=== PATIENT | female | born 2005 | race Caucasian/White ===

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

== ENCOUNTER 2025-05-29 20:25 | Emergency (ER) | payer BC, SELFPAY ==
[2025-05-29 20:25] VITALS: BP 152/100; PULSE 105; RESP 16; TEMP 36.8; O2SAT 97; BMI 32.9
--- NOTE | 2025-05-29 20:33 | EDS_ITS ---
HPI History of Present Illness Chief Complaint: General Illness Informant: patient Onset/Context/Timing Onset: Hours Context: Sudden Onset Timing: Continuous Quality: Lightheaded Location: Generalized Worsened by: Standing, moving Relieved by: Nothing Narrative Narrative: Patient presents with lightheadedness and dizziness that began a few hours ago. Patient states it began rather suddenly. Patient states she feels lightheaded, like she might pass out. Patient denies any chest pain. Patient admits to some slight shortness of breath. Patient states the lightheadedness is worse with standing and moving. Patient states nothing makes it better. Patient admits to a mild headache. Patient denies any nausea or vomiting. Patient denies any fevers or chills. [facility] Medical History Suicidal ideations Depression Anxiety PCOS (polycystic ovarian syndrome) Home Medications ?Medication ?Instructions ?Recorded ?Last Taken ?Type duloxetine 30 mg capsule,delayed 90 mg PO DAILY Unknown History release (Cymbalta) lamotrigine 200 mg tablet 175 mg PO QHS 04/10/24 Unkno wn History (Lamictal) lurasidone 20 mg tablet 40 mg PO QPM 04/10/24 Unknow n History metformin 1,000 mg tablet 500 mg PO BID 04/10/24 Unkno wn History testosterone 12.5 mg/1.25 gram per transdermal DAILY 1 07/30/24 Unknown History pump actuation (1%) transdermal gel Allergy/AdvReac Type Severity Reaction Status Date / Time No Known Allergies Allergy Verified 05/29/25 20:29 Surgical History no surgical history no surgical history Social History housing: other Smoking Status: Never smoker ROS ROS ED Constitutional Constitutional ED: Denies chills or fever(s) Eyes Eyes: Denies blurry vision or change in vision ENT ENT ED: Denies rhinorrhea or sore throat Cardiovascular Cardiovascular: Denies chest pain or palpitations Respiratory/Chest Respiratory/Chest: Reports dyspnea; Denies cough Gastrointestinal Gastrointestinal: Denies nausea or vomiting Genitourinary Genitourinary ED: Denies dysuria or hematuria Musculoskeletal Musculoskeletal: Denies back pain or neck pain Integumentary Denies abscess or rash Neurologic Neurologic: Reports headache(s); Denies weakness Allergic/Immunologic Allergic/Immunologic ED: Denies mouth swelling or urticaria EXAM Physical Exam Const Vital Signs: 05/29/25 20:25 05/29/25 21:00 05/29/25 21:08 Temperature 98.3 F Temperature Source Temporal Pulse Rate 105 H Pulse Rate [Lying] 105 H Pulse Rate [Sitting (for 1 minute prior to obtaining)] 114 H Pulse Rate [Standing (for 1 minute prior to obtaining)] 113 H Respiratory Rate 16 Respiratory Effort Normal Non-Labored Respiratory Pattern Normal Blood Pressure 152/100 H Blood Pressure [Lying] 131/86 H Blood Pressure [Sitting (for 1 minute prior to obtaining)] 132/94 H Blood Pressure [Standing (for 1 minute prior to obtaining)] 141/100 H Blood Pressure Mean 117 Blood Pressure Mean [Lying] 101 Blood Pressure Mean [Sitting (for 1 minute prior to obtaining)] 106 Blood Pressure Mean [Standing (for 1 minute prior to obtaining)] 113 Pulse Ox 97 Oxygen Delivery Method Room Air Positive well nourished and well developed General Appearance ED: well developed and NAD HEENT Reports moist mucous membranes Neck supple and no JVD Resp normal respiratory effort and clear to auscultation bilaterally Cardio regular rate and regular rhythm GI non-tender and non-distended Palpation: soft Extremity normal to inspection General Extremety ED: Negative for edema or tenderness General Extremity: Negative for edema Neuro oriented x3, CN's II-XII intact bilaterally and no sensory deficits noted Sensorium / Orientation: alert Motor Exam: strength 5/5 throughout Psych mental status grossly normal MDM MDM MDM Narrative Medical decision making narrative: Differential diagnosis includes electrolyte abnormality, dehydration, , hypovolemia, and anxiety. Orthostatic vital signs will be obtained to assess for hypovolemia and dehydration. CBC will be obtained to assess for leukocytosis and anemia. Basic metabolic profile will be obtained to assess for electrolyte abnormality and renal function. Serum hCG will be obtained to assess for . Lab Data Attestation: I reviewed the patient's lab results. Lab results narrative: CBC was reviewed. There is a mild leukocytosis of 11.5. The remainder is within normal limits. Basic metabolic profile was reviewed. Creatinine was slightly elevated at 1.21. Glucose was slightly elevated at 120. The remainder is within normal limits. Serum hCG was reviewed and was negative. Labs: Laboratory Results - last 24 hr 05/29/25 20:54 WBC 11.5 H RBC 4.72 Hgb 14.4 Hct 43.1 MCV 91.3 MCH 30.5 MCHC 33.4 RDW Std Deviation 40.0 RDW Coeff of Katie 11.9 Plt Count 434 MPV 10.0 Immature Gran % (Auto) 0.300 Neut % (Auto) 60.4 Lymph % (Auto) 29.4 [place] % (Auto) 7.5 Eos % (Auto) 2.1 Baso % (Auto) 0.3 Absolute Neuts (auto) 6.9 Absolute Lymphs (auto) 3.38 Nucleated RBC % 0 Sodium 142 Potassium 4.0 Chloride 103 Carbon Dioxide 25.7 Anion Gap 13 BUN 12 Creatinine 1.21 H Estim Creat Clear Calc 79.21 Est GFR (MDRD) Non-Af 66 BUN/Creatinine Ratio 10.2 Glucose 120 H Calcium 9.9 Serum , Qual NEGATIVE Treatment and Re-Evaluation :: Patient was given IV fluids. Orthostatic vital signs were obtained and were within normal limits. Patient was advised of her findings. Patient was instructed to drink plenty of fluids. Patient was instructed to follow-up with her primary care physician in 5 to 7 days. Patient understood and was agreeable with the plan. All questions were answered. Discharge Plan Triage Chief Complaint: General Illness ED Provider: Natan Harris Dx/Rx/DC Orders Clinical Impression: Lightheadedness, Mild dehydration Instructions: ED Dizziness, Uncertain Cause Prescriptions: No Action duloxetine [Cymbalta] 30 mg capsule,delayed release(DR/EC) 90 mg PO DAILY metformin 1,000 mg tablet 500 mg PO BID lurasidone 20 mg tablet 40 mg PO QPM Rx Instructions: must administer with food (at least 350 calories) lamotrigine [Lamictal] 200 mg tablet 175 mg PO QHS testosterone 12.5 mg/ 1.25 gram (1 %) gel in metered-dose pump transdermal DAILY Primary Care Provider: Care Physician,No Primary Referrals: Britton Dillon MD [Med Staff - Active Staff, Family Practice] - 5-7 Days Care Physician,No Primary [Primary Care Provider, Medical] Print Language: Hebrew Disposition Disposition: Home, Self Care
[2025-05-29] MEDS: 0.9% Normal Saline (1000mL) 1,000 ML 1000 ML IV (20:54)
[2025-05-29 21:08] VITALS: BP 131/86; BP 132/94; BP 141/100; PULSE 105; PULSE 113; PULSE 114
[2025-05-29 21:23] LABS: Hematocrit 43.1 % (37-47); Hemoglobin 14.4 g/dL (12.0-15.0); Immature Granulocytes Count 0.030 X10^3/uL (0.0-0.0); Mean Corp Hgb Conc 33.4 g/dL (32-36); Mean Corpuscular Volume 91.3 fL (81-99); Mean Platelet Vol. 10.0 fl (6.2-12.0); NRBC Flagged by Analyzer 0 % (0-5); Platelet Count 434 K/mm3 (150-450); RBC Distribution Width CV 11.9 % (11.6-14.6); RBC Distribution Width SD 40.0 fl (35.1-43.9); Red Blood Count 4.72 M/mm3 (4.2-5.4); White Blood Count 11.5 K/mm3 (4.4-11.0)
[2025-05-29 21:30] LABS: Internal QC Validated? YES +Cl - CLEAR BKGD; Pregnancy, Serum, hCG Quali. NEGATIVE Negative
--- OUTSIDE RECORDS SUMMARY | 2025-05-29 21:33 | XMS RPT_ITS | CCD ---
Author Organization [facility] Care Team Providers Care Denture Processor Name Role Phone Byod Jolley Attending [facility] Physician, No Primary Primary Care Unava ilable Problems Problem Classification Problem Date Documented Da te Episodic/Chronic Suicide and intentional self-inflicted injury (1 source) Suicidal ideations; Translations: [Suicidal ideations] Onset: 05-02-2024 Episodic Results Test Name Value Interpretation Reference Range Facil ity Urine Cultureon 04-12-2024 URC Below infection level. Mixed Gram Pos Gram Neg Org Singer Count 1000-10,000 MIXC Mixed contaminants. Submit a new specimen if indicated. Normal [facility] Comment on above: Performed By: #### M 100.2200 #### [facility] [address] [place], [place], [id number] Alcohol, Blood (Medical)-Ser umon 04-10-2024 SERUM ETOH 5.0 mg/dL Normal [facility] Comment on above: Result Comment: The serum:whole blood ethanol ratio is approximately 1.14 and varies slightly with hematocrit. Medical Alcohol reference interval and critical value in non-tolerant individuals; 50 - 100 Impairment 100 Intoxication 100 - 250 Severe Poisoning 250 - 400 Deep/possible fatal coma Performed By: #### L 100.0100, L505.5000, L500.2500, L700.6800, L501.9100 #### [facility] [address] [place], [place], [id number] Basic Metabolic Profile (BMP )on 04-10-2024 BUN/CRE 9.7 RATIO Low 10-20 [facility] Comment on above: Performed By: #### L 100.0100, L505.5000, L500.2500, L700.6800, L501.9100 #### [facility] [address] [place], [address] CA,Total 9.9 mg/dL Normal 8.5-10.1 [facility] Comment on above: Performed By: #### L 100.0100, L505.5000, L500.2500, L700.6800, L501.9100 #### [facility] [address] [place], [address] Chloride [Moles/Vol] 107 mmol/L Normal 98-107 [facility] Comment on above: Performed By: #### L 100.0100, L505.5000, L500.2500, L700.6800, L501.9100 #### [facility] [address] [place], [address] CO2 [Moles/Vol] 27.0 mmol/L Normal 21.0-32.0 [facility] Comment on above: Performed By: #### L 100.0100, L505.5000, L500.2500, L700.6800, L501.9100 #### [facility] [address] [place], [address] Creatinine [Mass/Vol] 0.82 mg/dL Normal 0.55-1.02 [facility] Comment on above: Result Comment: The validity of the calculated GFR GFRAA in patients over 70 years has not been determined. Clinical correlation is essential. Performed By: #### L 100.0100, L505.5000, L500.2500, L700.6800, L501.9100 #### [facility] [address] [place], [address] ECRCL 116.75 ml/min Normal [facility] Comment on above: Performed By: #### L 100.0100, L505.5000, L500.2500, L700.6800, L501.9100 #### [facility] [address] [place], [address] EST GFR - AA 115 mL/min Normal >60 [facility] Comment on above: Result Comment: Afri can Israeli GFR Calc Performed By: #### L 100.0100, L505.5000, L500.2500, L700.6800, L501.9100 #### [facility] [address] [place], [address] GAP 6 Normal 5-15 [facility] Comment on above: Performed By: #### L 100.0100, L505.5000, L500.2500, L700.6800, L501.9100 #### [facility] [address] [place], [address] GFR/1.73 sq M.predicted among non-blacks MDRD (S/P/Bld) [Vol rate/Area] 95 mL/min/{1.73_m2} Normal >60 [facility] Comment on above: Result Comment: Non- GFR Calc Performed By: #### L 100.0100, L505.5000, L500.2500, L700.6800, L501.9100 #### [facility] [address] [place], [address] Glucose [Mass/Vol] 90 mg/dL Normal 74-106 [facility] Comment on above: Performed By: #### L 100.0100, L505.5000, L500.2500, L700.6800, L501.9100 #### [facility] [address] [place], [address] Potassium [Moles/Vol] 3.4 mmol/L Low 3.5-5.1 [facility] Comment on above: Performed By: #### L 100.0100, L505.5000, L500.2500, L700.6800, L501.9100 #### [facility] [address] [place], [address] Sodium [Moles/Vol] 139 mmol/L Normal 136-145 [facility] Comment on above: Performed By: #### L 100.0100, L505.5000, L500.2500, L700.6800, L501.9100 #### [facility] [address] [place], [address] Urea nitrogen [Mass/Vol] 8 mg/dL Normal 7-18 [facility] Comment on above: Performed By: #### L 100.0100, L505.5000, L500.2500, L700.6800, L501.9100 #### [facility] [address] [place], [address] CBC W/Diff, Automatedon 10-1 Absolute Lymph 3.75 X10 3/uL Normal 0.83-4.51 [facility] Comment on above: Performed By: #### L 100.0100, L505.5000, L500.2500, L700.6800, L501.9100 #### [facility] [address] [place], [address] Absolute Neut 9.5 X10 3/uL High 2.0-7.7 [facility] Comment on above: Performed By: #### L 100.0100, L505.5000, L500.2500, L700.6800, L501.9100 #### [facility] [address] [place], [address] Basophils/100 WBC (Bld) 0.7 % Normal 0-1 [facility] Comment on above: Performed By: #### L 100.0100, L505.5000, L500.2500, L700.6800, L501.9100 #### [facility] [address] [place], [address] Eosinophils/100 WBC (Bld) 2.5 % Normal 0-5 [facility] Comment on above: Performed By: #### L 100.0100, L505.5000, L500.2500, L700.6800, L501.9100 #### [facility] [address] [place], [address] Erythrocyte distribution width (RBC) [Ratio] 11.7 % Normal 11.6-14.6 [facility] Comment on above: Performed By: #### L 100.0100, L505.5000, L500.2500, L700.6800, L501.9100 #### [facility] [address] [place], [address] Hematocrit (Bld) [Volume fraction] 41.6 % Normal 37-47 [facility] Comment on above: Performed By: #### L 100.0100, L505.5000, L500.2500, L700.6800, L501.9100 #### [facility] [address] [facility] [place], [address] Hemoglobin (Bld) [Mass/Vol] 13.9 g/dL Normal 12.0-15.0 [facility] Comment on above: Performed By: #### L 100.0100, L505.5000, L500.2500, L700.6800, L501.9100 #### [facility] [address] [place], [address] IG% 0.400 Normal 0.0-0.9 [facility] Comment on above: Result Comment: IG% - Immature Granulocytes (promyelocytes, myelocytes and metamyelocytes) > 1% indicates that a LEFT SHIFT is Present. Performed By: #### L 100.0100, L505.5000, L500.2500, L700.6800, L501.9100 #### [facility] [address] [place], [address] Lymphocytes/100 WBC (Bld) 25.4 % Normal 19-41 [facility] Comment on above: Performed By: #### L 100.0100, L505.5000, L500.2500, L700.6800, L501.9100 #### [facility] [address] [place], [address] MCH (RBC) [Entitic mass] 30.7 pg Normal 27.0-32.0 [facility] Comment on above: Performed By: #### L 100.0100, L505.5000, L500.2500, L700.6800, L501.9100 #### [facility] [address] [place], [address] MCHC (RBC) [Mass/Vol] 33.4 g/dL Normal 32-36 [facility] Comment on above: Performed By: #### L 100.0100, L505.5000, L500.2500, L700.6800, L501.9100 #### [facility] [address] [place], [address] MCV (RBC) [Entitic vol] 91.8 fL Normal 81-99 [facility] Comment on above: Performed By: #### L 100.0100, L505.5000, L500.2500, L700.6800, L501.9100 #### [facility] [address] [place], [address] Monocytes/100 WBC (Bld) 6.6 % Normal 0-10 [facility] Comment on above: Performed By: #### L 100.0100, L505.5000, L500.2500, L700.6800, L501.9100 #### [facility] [address] [place], [address] Neutrophils/100 WBC (Bld) 64.4 % Normal 47-70 [facility] Comment on above: Performed By: #### L 100.0100, L505.5000, L500.2500, L700.6800, L501.9100 #### [facility] [address] [place], [address] Nucleated RBC (Bld) [#/Vol] 0 10*3/uL Normal 0-5 [facility] Comment on above: Performed By: #### L 100.0100, L505.5000, L500.2500, L700.6800, L501.9100 #### [facility] [address] [place], [address] Platelet mean volume (Bld) [Entitic vol] 9.9 fL Normal 6.2-12.0 [facility] Comment on above: Performed By: #### L 100.0100, L505.5000, L500.2500, L700.6800, L501.9100 #### [facility] [address] [place], [address] Platelets (Bld) [#/Vol] 420 10*3/uL Normal 150-450 [facility] Comment on above: Performed By: #### L 100.0100, L505.5000, L500.2500, L700.6800, L501.9100 #### [facility] [address] [place], [address] RBC (Bld) [#/Vol] 4.53 10*6/uL Normal 4.2-5.4 [facility] Comment on above: Performed By: #### L 100.0100, L505.5000, L500.2500, L700.6800, L501.9100 #### [facility] [address] [place], [address] RDW SD 39.5 fl Normal 35.1-43.9 [facility] Comment on above: Performed By: #### L 100.0100, L505.5000, L500.2500, L700.6800, L501.9100 #### [facility] [address] [place], [address] WBC (Bld) [#/Vol] 14.7 10*3/uL High 4.4-11.0 [facility] Comment on above: Performed By: #### L 100.0100, L505.5000, L500.2500, L700.6800, L501.9100 #### [facility] [address] [place], [address] Emergency Department Summary on 04-10-2024 Emergency Department Summary [facility] Medical Records Department [address] [place] [address] Emergency Department Summary 04/10/24 MR#: [id number] Acct: [id number] Name: ANDREA LOPEZ Rep #: [id number] : 2005 19 From: Boyd Jolley DO PCP: Care Physician,No Primary Status:REG ER Location: ED HPI History of Present Illness Chief Complaint: Suicidal Narrative Narrative: Chief complaint and HPI: Suicidal ideation. 19-year-old female with history of depression, anxiety, ADHD, PCOS presents for evaluation of suicidal ideation. Patient states for the past several weeks she has had suicidal ideation. She states her thoughts have been more frequent and she has been more impulsive. She is worried that she is going to complete suicide. She states her plan is to overdose on medication. She states she is actively suicidal. Denies homicidal ideation. Denies auditory or visual hallucinations. Has been taking her medications. Has required inpatient psychiatric facility placement in the past. Patient is in agreement that she needs help. Denies any fever, chills, chest pain, shortness of breath abdominal pain, nausea, vomiting, dysuria. Denies any illicit drug abuse. Denies chance of . Denies any concern for STIs. Review of systems: See HPI Medications: As listed on the chart Allergies: As listed on the chart PFSH: Per chart Vital signs: As listed on the chart. Reviewed. Physical exam: Gen: A O x3, NAD Head: Normocephalic, atraumatic Eyes: No sclera icterus, conjunctiva clear ENT: Moist mucous membranes Neck: Trachea midline, No JVD CV: RRR, no murmurs, no peripheral edema Resp: Lungs CTA BL, no w/r/c GI: Abd soft, non-distended, non-tender, no r/r/g Musc: Full ROM, no deformity Skin: Warm, dry Neuro: Alert, oriented, grossly intact, sensation intact Psych: Cooperative, appropriate mood and affect PFSH PFS Medical History (Updated 04/10/24 @ 20:22 by Hanna Rincon) Suicidal ideations Depression Anxiety PCOS (polycystic ovarian syndrome) Home Medications ???Medication ???Instructions ???Recorded ???Last Taken ???Type cephalexin 500 mg capsule 500 mg PO Q12 5 days #10 CAPSULES 04/10/24 Unknown Rx duloxetine 30 mg capsule,delayed 90 mg PO DAILY 04/10/24 Unknown History release (Cymbalta) lamotrigine 200 mg tablet 200 mg PO QHS 04/10/24 Unknown History (Lamictal) levomefolate calcium 15 mg tablet 15 mg PO DAILY 04/10/24 Unknown History (L-Methylfolate) lurasidone 20 mg tablet 20 mg PO QPM 04/10/24 Unknown History metformin 1,000 mg tablet 1,000 mg PO DAILY 04/10/24 Unknown History metformin 500 mg tablet 500 mg PO QHS 04/10/24 Unknown History Allergy/AdvReac Type Severity Reaction Status Date / Time No Known Allergies Allergy Verified 04/10/24 19:50 Social History (Updated 04/10/24 @ 20:22 by Hanna Rincon) housing: other Smoking Status: Never smoker EXAM Physical Exam Const Vital Signs: 04/10/24 19:51 Temperature 98.9 F Temperature Source Oral Pulse Rate 109 H Respiratory Rate 18 Blood Pressure 157/85 H Blood Pressure Mean 109 Pulse Ox 97 Oxygen Delivery Method Room Air MDM MDM MDM Narrative Medical decision making narrative: 19-year-old female presents for evaluation of suicidal ideation. History of depression and anxiety. Plan is to overdose. Feels impulsive and that she will actually succeed in her suicidal attempt. Given that patient is actively suicidal, patient was pink slipped. Review explained to her my recommendation for inpatient psychiatric placement. She agrees with this. Will order medical clearance labs. CBC with a leukocytosis of 14.7. Patient is not endorsing any infectious symptoms such as URI symptoms for urinary symptoms however will get UA to assess for UTI. BMP relatively unremarkable. Urine negative. Urine drug screen negative. Alcohol level negative. UA is positive for UTI. Although patient is not having any dysuria or frequency will treat given her leukocytosis. I suspect this is the cause of her leukocytosis. She has no physical exam findings or symptoms of pyelonephritis. Keflex ordered. Patient will be placed on a 5-day course of Keflex as well. She confirmed understanding. Patient is medically cleared for placement. Crisis evaluated the patient and agrees with placement. Patient awaiting placement. Patient will be transferred once placement is achieved. Impression: 1. Suicidal ideation 2. UTI 3. History of depression and anxiety Lab Data Labs: Laboratory Results - last 24 hr 04/10/24 04/10/24 20:30 21:10 WBC 14.7 H RBC 4.53 Hgb 13.9 Hct 41.6 MCV 91.8 MCH 30.7 MCHC 33.4 RDW Std Deviation 39.5 RDW Coeff of Katie 11.7 Plt Count 420 MPV 9.9 Immature Gran % (Auto) 0.400 (more content not included)... Normal [facility] ,Serum,hCG Quali.on 04-10-2024 HCG, SERUM QUAL Negative Normal [facility] Comment on above: Performed By: #### L 100.0100, L505.5000, L500.2500, L700.6800, L501.9100 #### [facility] [address] [place], [place], [id number] Urinalysis, Completeon 04-10 BACTERIA 1+ /hpf Normal None Seen [facility] Comment on above: Order Comment: MALINA CTOR TO SPECIFY Performed By: #### L 400.0001 #### [facility] [address] [place], [address] CA OX CRYSTAL 1+ /hpf Normal [facility] Comment on above: Order Comment: MALINA CTOR TO SPECIFY Performed By: #### L 400.0001 #### [facility] [address] [place], [address] EPI,SQUAMOUS 5-10 SEEN Normal 5-10 [facility] Comment on above: Order Comment: MALINA CTOR TO SPECIFY Performed By: #### L 400.0001 #### [facility] [address] [place], [address] RBC 0-5 SEEN Normal 0-5 [facility] Comment on above: Order Comment: COLLE CTOR TO SPECIFY Performed By: #### L 400.0001 #### [facility] [address] [place], [address] WBC 0-5 SEEN Normal 0-5 [facility] Comment on above: Order Comment: COLLE CTOR TO SPECIFY Performed By: #### L 400.0001 #### [facility] [address] [place], [address] Mucus Ql (Urine sed) 3+ /hpf Normal [facility] Comment on above: Order Comment: COLLE CTOR TO SPECIFY Performed By: #### L 400.0001 #### [facility] [address] [place] [address] Urine Drug Screen (VISTA)on 04-10-2024 AMPHETAMINES Negative Normal <1000 ng/mL [facility] Comment on above: Performed By: #### L 100.0100, L505.5000, L500.2500, L700.6800, L501.9100 #### [facility] [address] [place], [place], [facility] BARBITIURATES Negative Normal < 200 ng/mL [facility] Comment on above: Performed By: #### L 100.0100, L505.5000, L500.2500, L700.6800, L501.9100 #### [facility] [address] [place] [address] BENZODIAZIPINE Negative Normal < 200 ng/mL [facility] Comment on above: Performed By: #### L 100.0100, L505.5000, L500.2500, L700.6800, L501.9100 #### [facility] [address] [facility] [address] COCAINE Negative Normal < 300 ng/mL [facility] Comment on above: Performed By: #### L 100.0100, L505.5000, L500.2500, L700.6800, L501.9100 #### [facility] [address] [place], [place], [facility] ECSTACY Negative Normal < 500 ng/mL [facility] Comment on above: Performed By: #### L 100.0100, L505.5000, L500.2500, L700.6800, L501.9100 #### [facility] [address] [place], [place], [facility] METHADONE Negative Normal < 300 ng/mL [facility] Comment on above: Performed By: #### L 100.0100, L505.5000, L500.2500, L700.6800, L501.9100 #### [facility] [address] [place], [facility] OPIATES Negative Normal < 300 ng/mL [facility] Comment on above: Performed By: #### L 100.0100, L505.5000, L500.2500, L700.6800, L501.9100 #### [facility] [place], [place], [facility] PCP Negative Normal < 25 ng/mL [facility] Comment on above: Performed By: #### L 100.0100, L505.5000, L500.2500, L700.6800, L501.9100 #### [facility] [address] [place], [place], [facility] THC Negative Normal < 50 ng/mL [facility] Comment on above: Performed By: #### L 100.0100, L505.5000, L500.2500, L700.6800, L501.9100 #### [facility] [address] [place], [place], [facility] VISTA UDS PH 5 Normal [facility] Comment on above: Performed By: #### L 100.0100, L505.5000, L500.2500, L700.6800, L501.9100 #### [facility] [place], [address] Encounters Encounter Date Encounter Type Care Provider Facility Start: 04-10-2024 End: 04-11-2024 Emergency department patient visit Boyd Jolley Facility:[facility] Payers Date Payer Category Payer Self-pay 2024 Unknown [id number] Unknown [id number] Summary Purpose Family History No Family History Records Found Advance Directives No Advanced Directives Records Found Additional Source Comments INFORMATION SOURCE (unrecogn ized section and content) DATE CREATED AUTHOR 05/04/2024 [facility] FOR RECORDS PERTAINING TO PATIENTS WHO ARE OR HAVE BEEN ENROLLED IN A CHEMICAL DEPENDENCY/SUBSTANCEABUSE PROGRAM, SOME INFORMATION MAY BE OMITTED. This clinical summary was aggregated from multiple sources. Caution should be exercised in using it in the provision of clinical care. This summary normalizes information from multiple sources, and as a consequence, information in this document may materially change the coding, format and clinical context of patient data. In addition, data may be omitted in some cases. CLINICAL DECISIONS SHOULD BE BASED ON THE PRIMARY CLINICAL RECORDS. [employer] provides no warranty or guarantee of the accuracy or completeness of information in this document.
[2025-05-29 22:05] LABS: Anion Gap 13 (5-15); BUN 12 mg/dL (4-19); BUN/Creat Ratio 10.2 RATIO (10-20); Calcium,Total 9.9 mg/dL (7.6-11.0); Carbon Dioxide 25.7 mmol/L (21.0-32.0); Chloride 103 mmol/L (98-108); Estimated Creatinine Clearance 79.21 ml/min (50-250); Glucose 120 mg/dL (70-99); Potassium 4.0 mmol/L (3.3-5.1)
[2025-05-29 22:55] VITALS: BP 134/83; PULSE 109; RESP 17; TEMP 36.2; O2SAT 99
== END 2025-05-29 22:57 | disposition home or self-care (01) ==
PROVIDERS: Emergency Provider Emergency Medicine; Visit Provider Emergency Medicine
DX: R42 Dizziness and giddiness (principal); R06.00 Dyspnea, unspecified; Z79.84 Long term (current) use of oral hypoglycemic drugs
CPT/HCPCS: 80048; 84703; 85025; 96360; 96361; 99283; A4216